=== PATIENT | female | born 1935 | race Caucasian/White ===

== ENCOUNTER 2016-09-26 17:07 | Emergency (ER) | payer MEDICARE ==
--- NOTE | 2016-09-26 18:13 | ERPHSYRPT ---
- History of Present Illness Time Seen by Provider: 09/26/16 18:08 Source: patient Exam Limitations: no limitations Patient Subjective Stated Complaint: states got something in left hand yesterday. unable to get it out. Triage Nursing Assessment: ambulated to room without difficulty. skin w/d, color normal. has tiny black area to left hand. slightly reddened. no drainage noted. attempted to remove it at home without success. Physician History: This is an 81-year-old white female with history of hypercholesterolemia high blood pressure Parkinson's and coronary artery disease. She arrives with complaint of a foreign body in the area volar surface of her hand ulnar aspect for 2 days. She is not sure what she got into her hand but she states she's been unable to remove it. Patient denies any other complaints. She has no fevers. She states her last tetanus shot was less than 5 years ago. Past medical history includes hypercholesterolemia, high blood pressure, coronary artery disease, Parkinson's Past surgical history includes CABG and pacer Occurred: days ago (2 days) Method of Injury: unknown (unknown foreign body left hand) Quality: constant Severity of Pain-Max: mild Severity of Pain-Current: mild Extremities Pain Location: hand: left Modifying Factors: Improves With: nothing Allergies/Adverse Reactions: No Known Drug Allergies Allergy (Verified 09/26/16 17:42) Home Medications: Albuterol Sulfate [Proventil Hfa] 6.7 gm IH Q4H PRN PRN 10/29/11 [History] Amlodipine Besylate 2.5 mg PO DAILY 10/29/11 [History] Aspirin 81 mg PO DAILY 10/29/11 [History] Clopidogrel Bisulfate [Plavix] 75 mg PO DAILY 10/29/11 [History] Dabigatran Etexilate Mesylate [Pradaxa] 150 mg PO BID 10/29/11 [History] Fenofibrate Nanocrystallized [Tricor] 48 mg PO DAILY 10/29/11 [History] Furosemide 20 mg [Lasix 20 mg] 20 mg PO DAILY 10/29/11 [History] Hydrochlorothiazide 12.5 mg PO DAILY 10/29/11 [History] Lisinopril/ Hctz 20/12.5 2 tab PO DAILY 10/29/11 [History] Metoprolol Tartrate 100 mg PO BID 10/29/11 [History] Omeprazole 20 MG [Prilosec 20 mg] 20 mg PO DAILY 10/29/11 [History] Pravastatin Sodium 40 mg PO HS 10/29/11 [History] Primidone 50 MG [Mysoline 50Mg] 150 mg PO HS 10/29/11 [History] Propranolol HCl 120 mg PO DAILY 10/29/11 [History] Hx Tetanus, Diphtheria Vaccination/Date Given: Yes Hx Influenza Vaccination/Date Given: No Hx Pneumococcal Vaccination/Date Given: No Immunizations Up to Date: No - Review of Systems Constitutional: No Fever, No Chills Eyes: No Symptoms Ears, Nose, & Throat: No Symptoms Respiratory: No Cough, No Dyspnea Cardiac: No Chest Pain, No Edema, No Syncope Abdominal/Gastrointestinal: No Abdominal Pain, No Nausea, No Vomiting, No Diarrhea Genitourinary Symptoms: No Dysuria Musculoskeletal: No Back Pain, No Neck Pain Skin: Other (foreign body left hand for 2 days) Neurological: No Dizziness, No Focal Weakness, No Sensory Changes Psychological: No Symptoms Endocrine: No Symptoms All Other Systems: Reviewed and Negative - Past Medical History Pertinent Past Medical History: Yes Neurological History: Other ENT History: No Pertinent History Cardiac History: High Cholesterol, Hypertension Respiratory History: No Pertinent History Endocrine Medical History: No Pertinent History Musculoskeletal History: No Pertinent History GI Medical History: No Pertinent History History: No Pertinent History Psycho-Social History: No Pertinent History Female Reproductive Disorders: No Pertinent History - Past Surgical History Past Surgical History: Yes Neuro Surgical History: No Pertinent History Cardiac: CABG, Pacemaker Respiratory: No Pertinent History Gastrointestinal: No Pertinent History Genitourinary: No Pertinent History Musculoskeletal: No Pertinent History Female Surgical History: No Pertinent History - Social History Smoking Status: Never smoker Exposure to second hand smoke: No Drug Use: none Patient Lives Alone: Yes - Nursing Vital Signs Nursing Vital Signs: Initial Vital Signs Temperature 97.8 F Temperature Source Oral Pulse Rate 60 Respiratory Rate 16 Pain Intensity 8 - Physical Exam General Appearance: alert Eyes, Ears, Nose, Throat Exam: moist mucous membranes Neck Exam: non-tender, supple Cardiovascular/Respiratory Exam: chest non-tender, normal breath sounds, regular rate/rhythm, no respiratory distress Abdominal Exam: non-tender, No guarding Back Exam: normal inspection, No vertebral tenderness Shoulder Exam: normal inspection, non-tender, no evidence of injury, normal ROM Elbow/Forearm Exam: normal inspection, non-tender, no evidence of injury, normal ROM Wrist Exam: normal inspection, non-tender, no evidence of injury, normal ROM Hand Exam: normal ROM, No normal inspection (patient with a small foreign body resembling a sliver on the base of her left hand volar surface ulnar aspect) Neuro/Tendon Exam: normal sensation, normal motor functions Mental Status Exam: alert, oriented x 3, cooperative Skin Exam: other (small foreign body volar surface base of left hand ulnar aspect) SpO2 Interpretation: normal (96%) SpO2: 96 Oxygen Delivery: Room Air - Course Nursing assessment & vital signs reviewed: Yes - Progress Progress: improved Progress Note: 09/26/16 18:12 This is a 81-year-old white female who has had a sliver in her left hand going on for 2 days. The patient's daughter tried to remove it unsuccessfully. Area is easily removed with a small forceps area was cleansed by the nurse and bacitracin was applied. Patient did not have erythema to the area. 09/26/16 18:14 patient states her tetanus is up-to-date - Departure Time of Disposition: 18:13 Departure Disposition: Home Clinical Impression: Foreign body of hand, left Qualifiers: Encounter type: initial encounter Qualified Code(s): S60.552A - Superficial foreign body of left hand, initial encounter Condition: Fair Critical Care Time: No Instructions: Removal of Foreign Body From Skin Additional Instructions: Return home. Clean area with warm soapy water and apply bacitracin daily. Tylenol every 4 hours as needed for pain. Follow-up with your family doctor or return if signs of infection or problems. Return for acute distress or for severe symptoms.
[2016-09-26] MEDS ORDERED: BACIGUENT PACKET ONE (18:14)
[2016-09-26] MEDS ORDERED: BACIGUENT PACKET TP ONE (18:18)
[2016-09-26 18:29] VITALS: BP 149/73; PULSE 78; O2SAT 97
== END 2016-09-26 18:28 | disposition home or self-care (01) ==
LOC: ED 17:07
DX: S60.552A Superficial foreign body of left hand, initial encounter (principal); E78.00 Pure hypercholesterolemia, unspecified; I10 Essential (primary) hypertension; I25.10 Atherosclerotic heart disease of native coronary artery without angina pectoris; G20 Parkinson's disease
CPT/HCPCS: 99283; 99284; A9270-GY

== ENCOUNTER 2020-10-10 02:55 | Emergency (ER) | payer MEDICARE ==
[2020-10-10 04:09] VITALS: O2SAT 98
--- NOTE | 2020-10-10 04:09 | ERPHSYRPT ---
- History of Present Illness Time Seen by Provider: 10/10/20 03:20 Source: patient, EMS Patient Subjective Stated Complaint: pt states she fell after getting dizzy and has pain in her rt arm. states the dizziness is not new for her Triage Nursing Assessment: pt alert and oriented, answers questions approp. pt arrive per ambulance. transfers to stretcher with assist of 3. skin warm and dry. pt states the only pain she has in in her rt upper arm. cap refill and radial pulse wnl. Physician History: Patient is an 85-year-old female who has chronic episodes of dizziness who fell at home she crawled to the telephone and EMS arrived and brought her to the ER. She denies any loss of consciousness her only complaint is pain in the right shoulder. She absolutely denies any other pain Occurred: just prior to arrival Reason for Fall: lightheaded, fell from standing pos, became dizzy Injuries/Pain Location: upper extremity (Right shoulder) Loss of Consciousness: no loss of consciousness Quality: throbbing Severity of Pain-Max: moderate Severity of Pain-Current: mild Modifying Factors: Improves With: nothing Associated Symptoms (Fall): dizziness, extremity injury Allergies/Adverse Reactions: No Known Drug Allergies Allergy (Verified 10/10/20 03:30) Home Medications: Amlodipine Besylate 5 mg PO DAILY 10/29/11 [History] Fenofibrate Nanocrystallized [Tricor] 48 mg PO HS 10/29/11 [History] Furosemide 20 mg [Lasix 20 mg] 40 mg PO BID 10/29/11 [History] Metoprolol Tartrate 100 mg PO BID 10/29/11 [History] Omeprazole 20 MG [Prilosec 20 mg] 20 mg PO DAILY 10/29/11 [History] Potassium Chloride 20 Meq [Klor-Con 20 MEQ] 20 meq PO DAILY 09/26/16 [History] Rivaroxaban [Xarelto] 20 mg PO DAILY 09/26/16 [History] Carbidopa/Levodopa [Sinemet 10-100 mg Tablet] 1 each PO BID 10/10/20 [History] Hx Tetanus, Diphtheria Vaccination/Date Given: Yes Hx Influenza Vaccination/Date Given: No Hx Pneumococcal Vaccination/Date Given: No Immunizations Up to Date: Yes Travel Risk - International Travel Have you traveled outside of the country in past 3 weeks: No - Coronavirus Screening Are you exhibiting any of the following symptoms?: No Close contact with a COVID-19 positive Pt in past 14-21 Days: No - Vaccine Status Have you recieved a Covid-19 vaccination: No - Review of Systems Constitutional: No Fever, No Chills Eyes: No Symptoms Ears, Nose, & Throat: No Symptoms Respiratory: No Cough, No Dyspnea Cardiac: No Chest Pain, No Edema, No Syncope Abdominal/Gastrointestinal: No Abdominal Pain, No Nausea, No Vomiting, No Diar ajay Genitourinary Symptoms: No Dysuria Musculoskeletal: Joint Pain (Right shoulder), No Back Pain, No Neck Pain Skin: No Rash Neurological: No Dizziness, No Focal Weakness, No Sensory Changes Psychological: No Symptoms Endocrine: No Symptoms All Other Systems: Reviewed and Negative - Past Medical History Pertinent Past Medical History: Yes Neurological History: Other ENT History: No Pertinent History Cardiac History: High Cholesterol, Hypertension, Other Respiratory History: No Pertinent History Endocrine Medical History: No Pertinent History Musculoskeletal History: No Pertinent History GI Medical History: No Pertinent History History: No Pertinent History Psycho-Social History: No Pertinent History Female Reproductive Disorders: No Pertinent History Other Medical History: pt poor historian with medical history - Past Surgical History Past Surgical History: Yes Neuro Surgical History: No Pertinent History Cardiac: CABG, Pacemaker Respiratory: No Pertinent History Gastrointestinal: No Pertinent History Genitourinary: No Pertinent History Musculoskeletal: No Pertinent History Female Surgical History: No Pertinent History - Social History Smoking Status: Never smoker Exposure to second hand smoke: No Drug Use: none Patient Lives Alone: Yes - Nursing Vital Signs Nursing Vital Signs: Initial Vital Signs Temperature 97.1 F 10/10/20 03:03 Pulse Rate 83 10/10/20 03:03 Respiratory Rate 18 10/10/20 03:03 Blood Pressure 137/73 10/10/20 03:03 O2 Sat by Pulse Oximetry 98 10/10/20 03:03 Pain Scale Pain Intensity 5 - Danielle Coma Score Best Eye Response (Danielle): (4) open spontaneously Best Verbal Response (Danielle): (5) oriented Best Motor Response (Danielle): (6) obeys commands [place] Total: 15 - Physical Exam General Appearance: no apparent distress, alert Head Injury: no evidence of injury Eye Exam: PERRL/EOMI ENT Exam: airway nml Neck Exam: normal inspection, No tenderness Respiratory/Chest Exam: normal breath sounds, No chest tenderness, No respiratory distress Cardiovascular Exam: normal heart sounds, regular rate/rhythm Gastrointestinal Exam: soft, No tenderness, No distention, No guarding, No ecchymosis Back Exam: normal inspection, No vertebral tenderness Extremity Exam: evidence of injury (Some pain to palpation of the right shoulder there is essentially limb normal range of motion), pain with movement, No deformities, No motor deficit, No sensory deficit Peripheral Pulses: carotid (R): 2+, carotid (L): 2+ Neurologic Exam: alert, oriented x 3, cooperative, sensation nml, No motor deficits Skin Exam: normal color, warm, dry SpO2 Interpretation: normal SpO2: 98 O2 Delivery: Room Air - Course Nursing assessment & vital signs reviewed: Yes Ordered Tests: Active Orders 24 hr Category Date Time Status CHEST 1 VIEW (PORTABLE) Stat Exams 10/10/20 03:00 Taken HIPS KALIA(2V) INCL PEL IF DONE Stat Exams 10/10/20 03:00 Taken SHOULDER Stat Exams 10/10/20 02:59 Taken - Progress Progress: improved - Departure Departure Disposition: Home Clinical Impression: Fall, Contusion of right shoulder Condition: Stable Critical Care Time: No Referrals: MARCO GARCIA [NON-STAFF PHY W/O PRIVILEGES] - Instructions: Preventing Falls
[2020-10-10] MEDS ORDERED: TYLENOL 325 MG PO STA (04:42)
[2020-10-10] MEDS ORDERED: TYLENOL 325 MG ONE (04:43)
[2020-10-10 05:08] VITALS: BP 128/72; PULSE 74
--- NOTE | 2020-10-10 09:02 | XRAY ---
Indication: Status post fall. Comparison: October 11, 2009. Portable chest is clear. Heart is now enlarged with new left-sided dual-lead pacemaker. Bony thorax intact again with osteopenia, moderate/advanced bony degenerative changes, mild dextroscoliosis centered at thoracolumbar junction, and sternotomy wires. Impression: New cardiomegaly and pacemaker. Negative for acute pneumonic process or CHF.
--- NOTE | 2020-10-10 09:03 | XRAY ---
Indication: Pain following fall. Comparison: None 3 view right shoulder overpenetrated in technique. There is osteopenia and moderate/advanced glenohumeral degenerative arthropathy with tiny heterotopic ossifications. No other bony, articular, or soft tissue abnormalities. Impression: Nonacute limited right shoulder with chronic features.
--- NOTE | 2020-10-10 09:05 | XRAY ---
Indication: Pain following fall. Comparison: None AP pelvis obtained with both hips in neutral and flexed demonstrates osteopenia, moderate scattered vascular calcifications, mild lower lumbar degenerative spondylosis, and CT proven benign 1.6 cm left pelvis calcification. No other bony, articular, or soft tissue abnormalities.
== END 2020-10-10 05:08 | disposition home or self-care (01) ==
LOC: ED 02:55
DX: S40.011A Contusion of right shoulder, initial encounter (principal); W18.30XA Fall on same level, unspecified, initial encounter; R42 Dizziness and giddiness; Z79.899 Other long term (current) drug therapy; I10 Essential (primary) hypertension
CPT/HCPCS: 71045; 73030; 73521; 99284; A9270-GY